=== PATIENT | female | born 1990 | race Two or more races ===

== ENCOUNTER 2024-08-14 11:07 | Outpatient (REF) | payer MEDICAID, SELFPAY ==
[2024-08-14 13:44] LABS: MANUAL DIFF FLAG NO
[2024-08-14 13:51] LABS: Basophils Percent Auto 0.3 % (0-2); Eosinophils Absolute Auto 0.2 X10*3/uL (0.0-0.4); Eosinophils Percent Auto 2.4 % (0-4); Hematocrit 32.3 % (37.0-47.0); Hemoglobin 9.6 g/dl (12.0-16.0); Imm Gran Abs Auto 0.02 X10*3/uL (0.00-0.03); Imm Gran Pct Auto 0.2 % (0.0-0.4); Lymphocytes Absolute Auto 1.9 X10*3/uL (1.2-4.9); Lymphocytes Percent Auto 21.8 % (20-40); Mean Corpuscular HGB Conc 29.7 g/dl (31.0-35.0); Mean Corpuscular Hemoglobin 21.5 pg (27.0-33.0); Mean Corpuscular Volume 72.3 fL (80.0-98.0); Mean Platelet Volume 10.9 fL (9.4-12.3); Monocytes Absolute Auto 0.5 X10*3/uL (0.1-1.2); Monocytes Percent Auto 5.7 % (2-11); Neutrophils Absolute Auto 6.1 x10*3/uL (2.0-8.3); Neutrophils Percent Auto 69.6 % (45-73); Platelet Count 382 X10*3/uL (160-400); Red Blood Count 4.47 X10*6/uL (4.20-5.50); Red Cell Distribution Width 21.6 % (11.0-16.0); White Blood Count 8.8 X10*3/uL (4.8-10.8)
[2024-08-14 14:01] LABS: Estimated Average Glucose 111 mg/dL; Hemoglobin A1c % 5.5 % (<6.0)
[2024-08-14 14:12] LABS: Alanine Aminotransferase 31 U/L (0-31); Albumin Level 4.4 g/dL (3.5-5.0); Alkaline Phosphatase 76 U/L (39-117); Anion Gap 11 (12-20); Aspartate Amino Transferase 29 U/L (5-31); Bilirubin Direct 0.2 mg/dL (0.0-0.5); Bilirubin Total 0.3 mg/dL (0.0-1.0); Blood Urea Nitrogen 10 mg/dL (9-16); Calcium 9.3 mg/dL (8.4-10.2); Carbon Dioxide 22 mmol/L (22-29); Chloride 108 mmol/L (96-108); Cholesterol 157 mg/dL (<200); Estimated Glomerular Filt Rate > 60; Glucose Random 83 mg/dL (60-115); HDL Cholesterol 50 mg/dL (>40); Iron 30 mcg/dL (30-160); LDL Cholesterol Calculated 73 mg/dL (<100); Percent Iron Saturation 8 % (15-50); Potassium 4.2 mmol/L (3.3-5.1); Sodium 137 mmol/L (135-145); Total Iron Binding Capacity 372 mcg/dL (228-428); Total Protein 7.9 g/dL (6.5-8.0); Triglycerides 172 mg/dL (<150); Unsaturated Iron Binding 342 ug/dL
[2024-08-14 14:20] LABS: Ferritin 52 ng/mL (10-122); TSH reflex Free T4 1.65 uIU/mL (0.32-4.0); Vitamin D 25-OH Total 18.5 ng/mL (>30)
[2024-08-14 14:22] LABS: Syphilis Screen Nonreactive (Nonreactive)
[2024-08-14 14:23] LABS: HIV AB/AG Nonreactive (Nonreactive); HIV Num 1 0.06 S/CO (0.00-0.99); ~HepC Num1 0.14 S/CO (0.00-0.79); ~Hepatitis C Antibody Nonreactive (Nonreactive)
[2024-08-14 14:36] LABS: Folate 12.9 ng/mL (> or = 4.0); Vitamin B12 245 pg/mL (200-900)
[2024-08-14 14:44] LABS: CT PCR NOT DETECTED (Not Detect.); NG PCR NOT DETECTED (Not Detect.)
== END 2024-08-14 11:08 | disposition home or self-care (01) ==
LOC: HO.HHCL 11:07
PROVIDERS: Visit Provider Family Medicine
DX: D64.9 Anemia, unspecified (principal); E66.811 Obesity, class 1; E66.09 Other obesity due to excess calories; Z68.30 Body mass index [BMI] 30.0-30.9, adult; Z11.3 Encounter for screening for infections with a predominantly sexual mode of transmission; H53.8 Other visual disturbances; R42 Dizziness and giddiness; R53.83 Other fatigue
CPT/HCPCS: 80048; 80061; 80076; 82306; 82607; 82728; 82746; 83036; 83540; 84443; 85025; 86780; 86803; 87389; 87491; 87591

== ENCOUNTER 2024-10-26 10:18 | Outpatient (REF) | payer MEDICAID, SELFPAY ==
--- OUTSIDE RECORDS SUMMARY | 2024-10-26 11:03 | XMS_ITS | Clinical Summary ---
Author Organization [employer] Address [address] [facility] [address] [place] [address] Care Team Providers Care Plant Hr Manager Name Role Phone Henny Cooney MD Primary Care Provider [phone] Allergies No known active allergies Medications cholecalciferol (Vitamin D-3) 25 MCG (1000 UT) tabletIndications: Vitamin D Deficiency Take 1 tablet (25 mcg) by mouth Once per day. 90 tablet 3 5 026 Active ferrous sulfate 325 (65 Fe) MG EC tabletIndications: Anemia, unspecified type TAKE 1 TABLET BY MOUTH TWICE DAILY WITH FOOD DO NOT BREAK, CRUSH, DISSOLVE OR CHEW 180 tablet 5 Active Ketotifen Fumarate 0.035 % solutionIndication s:Other chronic allergic conjunctivitis of both eyes Administer 1 drop into affected eye(s) 2 times daily. 10 mL 3 5 Active selenium sulfide (Selsun) 2.5 % shampooIndications :Dandruff Lather on scalp in shower twice a week, leave 3 min and rinse 118 mL 2 5 Active Active Problems Problem Noted Date Diagnosed Date Class 1 obesity due to exces s calories with body mass index (BMI) of 30.0 to 30.9 in adult 08/14/2024 Overview (08/14/2024): Discussed weight, diet, exercise with patient in relation to health conditions. Used motivational interviewing to illicit change talk and established initial goals with patient. Assessment & Plan (08/14/2024 10:35 AM EDT): Discussed weight, diet, exercise with patient in relation to health conditions. Used motivational interviewing to illicit change talk and established initial goals with patient. Anemia 08/14/2024 Overview (10/26/2024): Hx of anemia. Reporting symptoms of fatigue, dizziness and blurry vision for months, recently worsening. Lab Results Component Value Date FERRITIN 52 08/14/2024 HGB 9.6 (L) 08/14/2024 -repeating iron labs and vitamin B12 today 08/14/24. -start iron 08/14/24 -recheck Assessment & Plan (10/26/2024 9:41 AM EDT): Hx of anemia. Reporting symptoms of fatigue, dizziness and blurry vision for months, recently worsening. Lab Results Component Value Date FERRITIN 52 08/14/2024 HGB 9.6 (L) 08/14/2024 -repeating iron labs and vitamin B12 today 08/14/24. -start iron 08/14/24 -recheck Assessment & Plan (08/14/2024 11:08 AM EDT): Hx of anemia. Reporting symptoms of fatigue, dizziness and blurry vision for months, recently worsening. -repeating iron labs and vitamin B12 today 08/14/24. Other specified health status 08/14/2024 Overview (10/26/2024): -next comprehensive annual evaluation due after 10/26/24 -eye care facilitated by [facility] -dental home is -[facility] care proxy filed 10/26/24 Assessment & Plan (10/26/2024 9:40 AM EDT): -next comprehensive annual evaluation due after 10/26/24 -eye care facilitated by [facility] -[place] -[facility] care proxy filed 10/26/24 Vitamin D deficiency 08/14/2024 Overview (10/26/2024): Lab Results Component Value Date [id number] 18.5 (L) 08/14/2024 -start vit D 08/14/24 -recheck Assessment & Plan (10/26/2024 9:41 AM EDT): Lab Results Component Value Date [id number] 18.5 (L) 08/14/2024 -start vit D 08/14/24 -recheck Resolved Problems Problem Noted Date Diagnosed Date Resolved Date Dietary counseling 08/14/2024 Assessment & Plan (08/14/2024 10:34 AM EDT): Dietary Recommendations: Fruits, vegetables, whole grains, protein foods, and fat-free or low-fat dairy products are healthy choices. Eat different types of protein foods in your diet. This can include seafood, lean meats, poultry, beans, peas, lentils, nuts, seeds, soy products, and eggs. Limit foods and beverages higher in added sugars, saturated fat, and sodium. Exercise counseling 08/14/2024 10/27/19 Assessment & Plan (08/14/2024 10:35 AM EDT): Exercise Recommendations: At least 150 minutes of moderate-intensity physical activity per week, or an equivalent combination of moderate- and vigorous-intensity activity. Dizziness 08/14/2024 10/26/2024 Overview (10/26/2024): Ongoing for months, worsening the last couple months. COVID and Flu negative. -ordered TSH 08/14/24, normal. Likely due to anemia. Started on iron supplements and reordered labs. Assessment & Plan (08/14/2024 10:52 AM EDT): Ongoing for months, worsening the last couple months. COVID and Flu negative. -ordered TSH 08/14/24 Other fatigue 08/14/2024 10/26/2024 Overview (10/26/2024): Ongoing for months, worsening the last couple months. COVID and Flu negative. -ordered A1C, HFP, FLP, BMP and Vit D 08/14/24. Labs unremarkable, except anemia and vit D deficiency which could be causing her symptoms. Started on supplementation and will recheck labs. Assessment & Plan (08/14/2024 11:14 AM EDT): Ongoing for months, worsening the last couple months. COVID and Flu negative. -ordered A1C, HFP, FLP, BMP and Vit D 08/14/24 Blurry vision 08/14/2024 09/18/2024 Overview (08/14/2024): Ongoing for months, worsening the last couple months. COVID and Flu negative. -Ordered BMP and TSH 08/14/24 Assessment & Plan (08/14/2024 11:14 AM EDT): Ongoing for months, worsening the last couple months. COVID and Flu negative. -Ordered BMP and TSH 08/14/24 Encounters Date Type Department Care Team Description 10/26/2024 9:00 AM EDT Procedure Visit [facility] [address] [place] [address] Henny Cooney MD Class 1 obesity due to excess calories with body mass index (BMI) of 30.0 to 30.9 in adult, unspecified whether serious comorbidity present (Primary Dx); Anemia, unspecified type; Other fatigue; Dizziness; Vitamin D deficiency; Dietary counseling; Exercise counseling; Other specified health status; Cervical cancer screening; Routine screening for STI (sexually transmitted infection); Dandruff; Encounter for immunization 10/26/2024 Travel 10/25/2024 Telephone [facility] [address] [place] [address] Henny Cooney MD chart prep 09/18/2024 2:30 PM EDT Office Visit [facility] [address] [place] [address] Cindy Castañeda, OD Regular astigmatism, bilateral (Primary Dx); Other chronic allergic conjunctivitis of both eyes; Spasm of accommodation of both eyes 09/18/2024 Travel 09/13/2024 Telephone [facility] [address] [place] [address] Henny Cooney MD chartprep 09/07/2024 Refill [facility] [address] [place] [address] Henny Cooney MD Anemia, unspecified type 08/22/2024 Orders Only [facility] [address] [place] [phone] Henny Cooney MD Blurry vision (Primary Dx) 08/15/2024 Telephone [facility] [address] [place] [phone] Henny Cooney MD Results 08/14/2024 10:00 AM EDT Office Visit [facility] [address] [address] Henny Cooney MD Dizziness (Primary Dx); Other fatigue; Blurry vision; Anemia, unspecified type; Class 1 obesity due to excess calories with body mass index (BMI) of 30.0 to 30.9 in adult, unspecified whether serious comorbidity present; Dietary counseling; Exercise counseling; Routine screening for STI (sexually transmitted infection) 08/14/2024 Orders Only [facility] [address] [address] Henny Cooney MD Vitamin D deficiency (Primary Dx); Anemia, unspecified type 08/14/2024 Telephone [facility] [address] [place] [phone] Michell Mcdowell, MEÑO nurse triage 08/14/2024 [facility] [address] [address] Quique Hilario MD New patient appt. from Last 3 Months Immunizations Immunization Administration Dates Next Due Hep B, adult 10/26/2024 Tdap 10/26/2024 Family History Medical History Relation Name Comments Diabetes Other uncle Relation Name Status Comments Other uncle Social History Tobacco Use Types Packs/Day Years Used Date Smoking Tobacco: Never Smokeless Tobacco: Never Tobacco Cessation:Counseling Given: No Alcohol Use Standard Drinks/Week Comments Never 0 (1 standard drink = 0.6 oz pur e alcohol) Depression Answer Date Recorded Patient Health Questionnaire-9 Score 0 10/26/2024 Patient Health Questionnaire-9 Score 0 10/26/2024 Last PHQ-9: Questionnaire Data Not on file 0 10/26/2024 Housing Stability Answer Date Recorded What is your housing situation today? I have brittny ramirez 10/26/[address] you li ve. Do you have problems with any of the following? None of the above 10/26/2024 Food Insecurity Answer Date Recorded Within the past 12 months, y ou worried that your food would run out before you got money to buy more: Never True 10/26/2024 Within the past 12 months,th e food you bought just didn't last and you didn't have enough money to get more: Never True 10/2024 Transportation Answer Date Recorded In the past 12 months, has l ack of transportation kept you from medical appts, meetings, work or from getting things needed for daily living? No 10/26/2024 Utilities Answer Date Recorded In the past 12 months, has t he electric, gas, oil or water company threatened to shut off services in your home? No 10/26/2024 Depression Answer Date Recorded Patient Health Questionnaire-2 Score 0 10/26/2024 Internet Access Answer Date Recorded Internet Access Q1 No 10/26/2024 Internet Access Q2 I do not want or need it 10/2024 Comments Unknown Intention Date Recorded No desire to become (finding) 0 08/14/2024 Sex and Gender Information Value Date Recorded Sex Assigned at Female 08/14/2024 9:39 AM EDT Legal Sex Female 1:21 PM EST Gender Identity Female 08/14/2024 9:39 AM EDT Sexual Orientation Straight 08/14/2024 9: 39 AM EDT Last Filed Vital Signs Vital Sign Reading Time Taken Comments Blood Pressure 96/62 10/26/2024 9:11 AM EDT Pulse 83 10/26/2024 9:11 AM EDT Temperature 37.2 ??C (98.9 ??F) 10/26/2024 9:11 AM ED T Respiratory Rate 20 10/26/2024 9:11 AM EDT Oxygen Saturation 99% 10/26/2024 9:11 AM EDT Inhaled Oxygen Concentration - - Weight 68.6 kg (151 lb 3.2 oz) 10/26/2024 9:11 A M EDT Height 146.7 cm (4' 9.75 ) 10/26/2024 9:11 AM ED T Body Mass Index 31.88 10/26/2024 9:11 AM EDT Plan of Treatment Health Maintenance Due Date Last Done Comments Pap Smear 12/30/2012 Cervical Cancer Screening 12/30/2021 HPV/Cotest 12/30/2021 Hepatitis B Vaccines (2 of 3 - 19+ 3-dose series) 11/23/2024 10/26/2024 COVID-19 Vaccine (1 - 2023-2 5 season) 2024 Postponed from 01/21 (Supply/Drug Shortage) Influenza Vaccine (Season Ended) 2025 Family Planning (PISQ) 08/14/2025 08/14/2024 Alcohol/Substance Use Screening 10/26/2025 10/26/2024 Depression Screening 10/26/2025 10/26/2024, 10/26/2024 Disability Screening 10/26/2025 10/26/2024 SDOH Screening 10/26/2025 10/26/2024 Tobacco Screening 10/26/2025 10/26/2024 Lipid Panel 08/14/2029 08/14/2024 DTaP/Tdap/Td Vaccines (2 - T d or Tdap) 10/26/2034 10/26/2024 Zoster Vaccines (1 of 2) 12/30/2041 RSV Patients and Patients Aged 60 years or older (1 - 1-dose 75+ series) 12/30/2066 HIV Screening Completed 08/14/2024 Hepatitis C Screening Completed 08/14/2024 HIB Vaccines Aged Out No longer eligi ble based on patient's age to complete this topic HPV Vaccines Aged Out No longer eligi ble based on patient's age to complete this topic Hepatitis A Vaccines Aged Out No long er eligible based on patient's age to complete this topic IPV Vaccines Aged Out No longer eligi ble based on patient's age to complete this topic Meningococcal B Vaccine Aged Out No l onger eligible based on patient's age to complete this topic Meningococcal Vaccine Aged Out No antoine angel eligible based on patient's age to complete this topic Pneumococcal Vaccine: Pediatrics (0 to 5 Years) and At-Risk Patients (6 to 49) Years) Aged Out No longer eligible b ased on patient's age to complete this topic RSV under 20 months Aged Out No longe r eligible based on patient's age to complete this topic Rotavirus Vaccines Aged Out No longer eligible based on patient's age to complete this topic Procedures Procedure Name Priority Date/Time Associated Diagnosis Comments VITAMIN B12/FOLATE, SERUM PANEL Routine 08/14/2024 11:15 AM EDT Anemia, unspecified type IRON AND TOTAL IRON BINDING CAPACITY Routine 08/14/2024 11:15 AM EDT Anemia, unspecified type TSH W/REFLEX TO FT4 Routine 08/14/2024 1 1:15 AM EDT Dizziness Anemia, unspecified type Other fatigue Blurry vision FERRITIN Routine 08/14/2024 11:15 AM EDT Anemia, unspecified type CBC WITH AUTO DIFFERENTIAL Routine 08/14/2024 11:15 AM EDT Anemia, unspecified type SYPHILIS SCREEN Routine 08/14/2024 11:15 AM EDT Routine screening for STI (sexually transmitted infection) HIV 1/2 ANTIGEN/ANTIBODY, FOURTH GENERATION W/RFL Routine 08/14/2024 11:15 AM EDT Routine screening for STI (sexually transmitted infection) HEPATITIS C AB W/REFL TO HCV RNA, QN, PCR Routine 08/14/2024 11:15 AM EDT Routine screening for STI (sexually transmitted infection) VITAMIN D,25-OH,TOTAL,IA Routine 08/14/2024 11:15 AM EDT Other fatigue BASIC METABOLIC PANEL Routine 08/14/2024 11:15 AM EDT Other fatigue Blurry vision LIPID PANEL, STANDARD Routine 08/14/2024 11:15 AM EDT Class 1 obesity due to excess calories with body mass index (BMI) of 30.0 to 30.9 in adult, unspecified whether serious comorbidity present Other fatigue HEPATIC FUNCTION PANEL Routine 08/14/2024 11:15 AM EDT Other fatigue HEMOGLOBIN A1C Routine 08/14/2024 11:15 AM EDT Class 1 obesity due to excess calories with body mass index (BMI) of 30.0 to 30.9 in adult, unspecified whether serious comorbidity present Other fatigue CHLAMYDIA/N. GONORRHOEAE RNA, TMA, UROGENITAL Routine 08/14/2024 11:15 AM EDT Routine screening for STI (sexually transmitted infection) POCT INFLUENZA B (ID NOW RAPID MOLECULAR) Routine 08/14/2024 10:15 AM EDT Dizziness POCT RAPID COVID ANTIGEN Routine 08/14/2024 10:14 AM EDT Dizziness POCT INFLUENZA A (ID NOW RAPID MOLECULAR) Routine 08/14/2024 10:14 AM EDT Dizziness from Last 3 Months Results * Syphilis Screen (08/14/2024 11:15 AM EDT) Pathologist [facility] Syphilis Screen Nonreactive Nonreactive [facility] Blood Venous blood specimen / Unknown 08/14/2024 11:15 AM EDT 08/14/2024 1:38 PM EDT us Henny Cooney MD LAB BLOOD ORDERABLES Final Result [facility] [address] [place] [phone] * (ABNORMAL) Vitamin D, 25-Hydroxy, Total, Immunoassay (08/14/2024 11:15 AM EDT) Vitamin D 25-OH Total 18.5(L) >30 ng/mL [facility] Comment: Health Based Reference Values*< 20 ??ng/mL ??[id number] ng/mL ??Insufficient> 30 ??ng/mL ??Sufficient*Carmelo LAUGHLIN. N Engl J Med. 2007;357:266-280There is no well-established upper level of normal vitamin Dlevels. Some laboratories use 50 ng/mL as an upper limit ofnormal. However, toxicity is patient-dependent and may occurat any level. Careful correlation with the patient'spresentation is necessary and, if there is concern forvitamin D toxicity, treatment should be consideredirrespective of the serum level.Care must be taken in interpreting Vitamin D results fromdifferent laboratories and methodologies. ??Published datademonstrated that results from patients undergoinghemodialysis may show a negative bias when tested withvarious automated 25-OH vitamin D assays when compared toLC- MS/MS.When testing samples from patients whose predominant form ofVitamin D is Vitamin D2, such as patients receiving VitaminD2 supplementation, results that are subtherapeutic shouldbe confirmed with another method such as LC-MS/MS. Blood 08/14/2024 11:1 5 AM EDT 08/14/2024 1:38 PM EDT Henny Cooney MD LAB BLOOD ORDERABLES Final Result Performing Organization Address [facility] Co de Phone Number [facility] [address] [place] [phone] * Vitamin B12 (Cobalamin) and Folate Panel, Serum (08/14/2024 11:15 AM EDT) Vitamin B12 245 200 - 900 pg/mL [facility] Comment:NORMAL 200-900 PG/ML INDETERMINATE 160-199 PG/ML DEFICIENT < 160 PG/ML Folate 12.9 > or = 4.0 ng/mL [facility] Comment:Reference Values:> o r = 4.0 ng/mL< 4.0 ng/mL suggests folate deficiency Methotrexate, aminopterin and folinic acid(leucovorin) are chemotherapeutic agents whose molecularstructures are similar to folate; therefore, the Architectfolate assay cannot be used for patients using these drugs. Blood Venous blood specimen / Unknown 08/14/2024 11:15 AM EDT 08/14/2024 1:38 PM EDT Henny Cooney MD LAB BLOOD ORDERABLES Final Result Performing Organization Address [facility]/ZIP Co de Phone Number [facility] [address] [place] [phone] * TSH with Reflex to Free T4 (08/14/2024 11:15 AM EDT) TSH reflex Free T4 1.65 0.32 - 4.0 uIU/mL [facility] Blood Venous blood specimen / Unknown 08/14/2024 11:15 AM EDT 08/14/2024 1:38 PM EDT Henny Cooney MD LAB BLOOD ORDERABLES Final Result [facility] [address] [place] [phone] * (ABNORMAL) CBC auto differential (08/14/2024 11:15 AM EDT) White Blood Count 8.8 4.8 - 10.8 X10*3/uL [facility] Red Blood Count 4.47 4.20 - 5.50 X10*6/uL [facility] Hemoglobin 9.6(L) 12.0 - 16.0 g/dl [facility] Hematocrit 32.3(L) 37.0 - 47.0 % [facility] Mean Corpuscular Volume 72.3(L) 80.0 - 98.0 fL [facility] Mean Corpuscular Hemoglobin 21.5(L) 27.0 - 33.0 pg [facility] Mean Corpuscular HGB Conc 29.7(L) 31.0 - 35.0 g/dl [facility] Red Cell Distribution Width 21.6(H) 11.0 - 16.0 % [facility] Platelet Count 382 160 - 400 X10*3/uL [facility] Mean Platelet Volume 10.9 9.4 - 12.3 fL [facility] Neutrophils Percent Auto 69.6 45 - 73 % [facility] Imm Gran Pct Auto 0.2 0.0 - 0.4 % [facility] Lymphocytes Percent Auto 21.8 20 - 40 % [facility] Monocytes Percent Auto 5.7 2 - 11 % [facility] Eosinophils Percent Auto 2.4 0 - 4 % [facility] Basophils Percent Auto 0.3 0 - 2 % [facility] NRBC Pct Auto 0.0 0.0 - 0.2 /100WBC [facility] Neutrophils Absolute Auto 6.1 2.0 - 8.3 x10*3/uL [facility] Imm Gran Abs Auto 0.02 0.00 - 0.03 X10*3/uL [facility] Lymphocytes Absolute Auto 1.9 1.2 - 4.9 X10*3/uL [facility] Monocytes Absolute Auto 0.5 0.1 - 1.2 X10*3/uL [facility] Eosinophils Absolute Auto 0.2 0.0 - 0.4 X10*3/uL [facility] Basophils Absolute Auto 0.0 0.0 - 0.2 X10*3/uL [facility] NRBC Abs Auto 0.000 0.0 - 0.012 X10*3/uL [facility] Blood Venous blood specimen / Unknown 08/14/2024 11:15 AM EDT 08/14/2024 1:38 PM EDT Henny Cooney MD LAB BLOOD ORDERABLES Final Result Performing Organization Address [facility] Co de Phone Number [facility] [address] [place] [phone] * Hepatitis C Antibody with Reflex to HCV, RNA, Quantitative, Real-Time PCR (08/14/2024 11:15 AM EDT) Hepatitis C Antibody Nonreactive Nonreactive [facility] Comment:Antibodies to HCV no t detected; does not exclude early acuteHCV infection. Blood Venous blood specimen / Unknown 08/14/2024 11:15 AM EDT 08/14/2024 1:38 PM EDT Henny Cooney MD LAB BLOOD ORDERABLES Final Result Performing Organization Address City/[facility]/ZIP Co de Phone Number [facility] [address] [place] [address] [place] [phone] * (ABNORMAL) Iron And Total Iron Binding Capacity (08/14/2024 11:15 AM EDT) Pathologist [facility] Iron 30 30 - 160 mcg/dL [facility] Total Iron Binding Capacity 372 228 - 428 mcg/dL [facility] Percent Iron Saturation 8(L) 15 - 50 % [facility] Unsaturated Iron Binding 342 ug/dL [facility] Blood Venous blood specimen / Unknown 08/14/2024 11:15 AM EDT 08/14/2024 1:38 PM EDT Henny Cooney MD LAB BLOOD ORDERABLES Final Result [facility] [address] [place] [phone] * Chlamydia/N. Gonorrhoeae RNA, TMA, Urine (08/14/2024 11:15 AM EDT) [facility] CT PCR NOT DETECTED Not Detect. [facility] Comment:A not detected test result does not exclude the possibilityof infection because test results can be affected byimproper specimen collection, concurrent antibiotic therapy,or the number of organisms in the specimen which may bebelow the sensitivity of the test. As with many diagnostictests, results from the Xpert CT/NG assay should beinterpreted in conjunction with other laboratory andclinical data available to the clinician.Xpert CT/NG performance has not been evaluated in patientsless than 14 years of age. The assay should not be used forthe evaluationof suspected sexual abuse or for other medico-legalindications. Additional testing is recommended in anycircumstance when false positive or false negative resultscould lead to adverse medical, social or psychologicalconsequences. NG PCR NOT DETECTED Not Detect. [facility] Comment:A not detected test result does not exclude the possibilityof infection because test results can be affected byimproper specimen collection, concurrent antibiotic therapy,or the number of organisms in the specimen which may bebelow the sensitivity of the test. As with many diagnostictests, results from the Xpert CT/NG assay should beinterpreted in conjunction with other laboratory andclinical data available to the clinician.Xpert CT/NG performance has not been evaluated in patientsless than 14 years of age. The assay should not be used forthe evaluationof suspected sexual abuse or for other medico-legalindications. Additional testing is recommended in anycircumstance when false positive or false negative resultscould lead to adverse medical, social or psychologicalconsequences. Urine (Urine, Random) 08/14/2024 11:15 AM EDT 08/14/2024 1:05 PM EDT Narrative [facility] - 08/14/2024 2:44 PM EDT Urine Henny Cooney MD LAB MICROBIOLOGY - GENERAL ORDERABLES Final Result [facility] [address] [place] [phone] * HIV-1/2 Antigen and Antibodies, Fourth Generation, with Reflexes (08/14/2024 11:15 AM EDT) HIV AB/AG Nonreactive Nonreactive [facility] Comment:HIV-1 p24 Ag and/or HIV-1/HIV-2 Ab not detected.A test result that is nonreactive does not exclude thepossibility of exposure to or infection with HIV-1 and/orHIV-2. Nonreactive results in this assay for individualswith prior exposure to HIV-1 and/or HIV-2 may be due toantigen and antibody levels that are below the limit ofdetection of this assay.The [employer] HIV Ag/Ab Combo assay result andsupplemental assay results should be interpreted inconjunction with the patient's clinical presentation,history and other laboratory results. If the results areinconsistent with clinical evidence, additional testing issuggested to confirm the result. Blood Venous blood specimen / Unknown 08/14/2024 11:15 AM EDT 08/14/2024 1:38 PM EDT Henny Cooney MD LAB BLOOD ORDERABLES Final Result Performing Organization Address [facility] Co de Phone Number [facility] [address] [place] [phone] * Hemoglobin A1c (08/14/2024 11:15 AM EDT) Hemoglobin A1c 5.5 <6.0 % [facility] Comment:Hemoglobin A1C Refer ence Range Adults: 4.8 - 6.0 % Non diabetic: < 6.0 % Goal: < 7.0 %Additional Action Suggested: > 8.0 %Note: Hemoglobin A1c results are invalid for patients with abnormal amounts of HbF. Blood transfusions may impact the HbA1c concentration in the patient sample. Estimated Average Glucose 111 mg/dL [facility] Comment:eAG = Estimated ave rage glucose which is %A1C expressed asaverage glucose, using the formula of the [id number] Glucose study (ADAG), Diabetes Care, Vol.31,#8,2007 Blood Venous blood specimen / Unknown 08/14/2024 11:15 AM EDT 08/14/2024 1:38 PM EDT Henny Cooney MD LAB BLOOD ORDERABLES Final Result Performing Organization Address [facility] de Phone Number [facility] [address] [place] [address] [phone] * Ferritin (08/14/2024 11:15 AM EDT) Ferritin 52 10 - 122 ng/mL [facility] Blood Venous blood specimen / Unknown 08/14/2024 11:15 AM EDT 08/14/2024 1:38 PM EDT Henny Cooney MD LAB BLOOD ORDERABLES Final Result Performing Organization Address [facility] Co de Phone Number [facility] [address] [place] [address] [phone] * Hepatic Function Panel (08/14/2024 11:15 AM EDT) Bilirubin, Total 0.3 0.0 - 1.0 mg/dL [facility] Bilirubin, Direct 0.2 0.0 - 0.5 mg/dL [facility] Aspartate Amino Transferase 29 5 - 31 U/L [facility] Alanine Aminotransferase 31 0 - 31 U/L [facility] Total Protein 7.9 6.5 - 8.0 g/dL [facility] Albumin Level 4.4 3.5 - 5.0 g/dL [facility] Alkaline Phosphatase 76 39 - 117 U/L [facility] Blood Venous blood specimen / Unknown 08/14/2024 11:15 AM EDT 08/14/2024 1:38 PM EDT us Henny Cooney MD LAB BLOOD ORDERABLES Final Result [facility] [address] [place] [address] [phone] * (ABNORMAL) Lipid Panel, Standard (08/14/2024 11:15 AM EDT) Triglycerides 172(H) <150 mg/dL [facility] Comment:Desirable Triglyceri de: less than 150 mg/dLBorderline High Triglyceride 150-199 mg/dLHigh Triglyceride: 200-499 mg/dLVery High Triglyceride: greater than or equal to 5OO mg/dL Cholesterol 157 <200 mg/dL [facility] Comment:Desirable Cholestero l: less than 200 mg/dLBorderline High Cholesterol: 200-239 mg/dLHigh Cholesterol: greater than 239 mg/dL LDL Cholesterol Calculated 73 <100 mg/dL [facility] Comment:Desirable LDL: less than 100 mg/dLNear Optimal/Above Optimal LDL: 110- 129 mg/dLBorderline High LDL: 130-159 mg/dLHigh LDL: 160-189 mg/dLVery High LDL: greater than or equal to 190 mg/dL HDL Cholesterol 50 >40 mg/dL [facility] Comment:Desirable HDL: great er than 40 mg/dL Note: This HDL assay may give artificially low results in patients with liver disease. Blood Venous blood specimen / Unknown 08/14/2024 11:15 AM EDT 08/14/2024 1:38 PM EDT Henny Cooney MD LAB BLOOD ORDERABLES Final Result Performing Organization Address [facility]/ZIP Co de Phone Number [facility] [address] [place] [phone] * (ABNORMAL) Basic Metabolic Panel (08/14/2024 11:15 AM EDT) Pathologist [facility] Sodium 137 135 - 145 mmol/L [facility] Potassium 4.2 3.3 - 5.1 mmol/L [facility] Chloride 108 96 - 108 mmol/L [facility] Carbon Dioxide 22 22 - 29 mmol/L [facility] Anion Gap 11(L) 12 - 20 [facility] Urea Nitrogen (BUN) 10 9 - 16 mg/dL [facility] Creatinine, Serum 0.62 0.5 - 1.4 mg/dL [facility] Estimated Glomerular Filt Rate >60 [facility] Comment:Chronic Kidney Disea se: Estimated GFR < 60 mL/min/1.51q3Wutnmp Kidney Disease: Estimated GFR < 15 mL/min/1.73m2 Glucose 83 60 - 115 mg/dL [facility] Calcium 9.3 8.4 - 10.2 mg/dL [facility] Blood Venous blood specimen / Unknown 08/14/2024 11:15 AM EDT 08/14/2024 1:38 PM EDT Henny Cooney MD LAB BLOOD ORDERABLES Final Result Performing Organization Address [facility] Co de Phone Number [facility] [address] [place] [phone] * Influenza B (ID NOW Rapid Molecular) (08/14/2024 10:15 AM EDT) Influenza B Negative Negative, Indeterminate [facility] Swab 08/14/2024 10:1 5 AM EDT Henny Cooney MD POINT OF CARE TEST ENTER/E DIT ORDERABLES Final Result Performing Organization Address City/[facility]/ZIP Co de Phone Number [facility] [address] [place] [phone] * Influenza A (ID NOW Rapid Molecular) (08/14/2024 10:14 AM EDT) Influenza A Negative Negative, Indeterminate [facility] Swab 08/14/2024 10:1 4 AM EDT Henny Cooney MD POINT OF CARE TEST ENTER/E DIT ORDERABLES Final Result Performing Organization Address City/[facility]/ZIP Co de Phone Number [facility] [address] [place] [phone] * POCT Rapid COVID Ag (08/14/2024 10:14 AM EDT) Rapid COVID Ag Negative Swab 08/14/2024 10:1 4 AM EDT Henny Cooney MD POINT OF CARE TEST ENTER/E DIT ORDERABLES Final Result from Last 3 Months Insurance payworks HSN FULL Care Teams Plant [employer] Relationship Specialty Start Date End Date Henny Cooney MD [address] [place] [phone] PCP - General Family Medicine 08/14/24
[2024-10-26 11:17] LABS: MANUAL DIFF FLAG NO
[2024-10-26 11:30] LABS: Basophils Percent Auto 0.3 % (0-2); Eosinophils Absolute Auto 0.4 X10*3/uL (0.0-0.4); Eosinophils Percent Auto 4.9 % (0-4); Hematocrit 32.9 % (37.0-47.0); Hemoglobin 10.1 g/dl (12.0-16.0); Imm Gran Abs Auto 0.02 X10*3/uL (0.00-0.03); Imm Gran Pct Auto 0.3 % (0.0-0.4); Lymphocytes Percent Auto 26.6 % (20-40); Mean Corpuscular HGB Conc 30.7 g/dl (31.0-35.0); Mean Corpuscular Hemoglobin 23.6 pg (27.0-33.0); Mean Corpuscular Volume 76.9 fL (80.0-98.0); Mean Platelet Volume 10.4 fL (9.4-12.3); Monocytes Absolute Auto 0.5 X10*3/uL (0.1-1.2); Monocytes Percent Auto 7.1 % (2-11); Neutrophils Absolute Auto 4.6 x10*3/uL (2.0-8.3); Neutrophils Percent Auto 60.8 % (45-73); Platelet Count 327 X10*3/uL (160-400); Red Blood Count 4.28 X10*6/uL (4.20-5.50); Red Cell Distribution Width 19.5 % (11.0-16.0); White Blood Count 7.5 X10*3/uL (4.8-10.8)
[2024-10-26 14:15] LABS: Iron 25 mcg/dL (30-160); Percent Iron Saturation 7 % (15-50); Total Iron Binding Capacity 349 mcg/dL (228-428); Unsaturated Iron Binding 324 ug/dL
[2024-10-26 14:24] LABS: Ferritin 13 ng/mL (10-122); TSH reflex Free T4 1.53 uIU/mL (0.32-4.0); Vitamin D 25-OH Total 46.9 ng/mL (>30)
[2024-10-26 14:39] LABS: Folate 14.7 ng/mL (> or = 4.0); Vitamin B12 216 pg/mL (200-900)
== END 2024-10-26 10:19 | disposition home or self-care (01) ==
LOC: HO.HHCL 10:18
PROVIDERS: Visit Provider Family Medicine
DX: D64.9 Anemia, unspecified (principal); E55.9 Vitamin D deficiency, unspecified
CPT/HCPCS: 36415; 82306; 82607; 82728; 82746; 83540; 84443; 85025

== ENCOUNTER 2024-10-26 16:43 | Outpatient (REF) | payer MEDICAID, SELFPAY ==
[2024-10-30 22:29] LABS: C. trachomatis RNA TMA NOT DETECTED (NOT DETECTED); N. gonorrhoeae RNA TMA NOT DETECTED (NOT DETECTED); Trichomonas (NAAT) NOT DETECTED (NOT DETECTED)
[2024-10-31 13:44] LABS: HPV Genotype 16 Negative (Negative); HPV Genotype 18 Negative (Negative); HPV High Risk Negative (Negative)
== END 2024-10-26 16:44 | disposition home or self-care (01) ==
LOC: HO.HHCLNP 16:43
PROVIDERS: Visit Provider Family Medicine
DX: Z11.3 Encounter for screening for infections with a predominantly sexual mode of transmission (principal); Z12.4 Encounter for screening for malignant neoplasm of cervix
CPT/HCPCS: 36415; 82306; 82607; 82728; 82746; 83540; 84443; 85025; 87491; 87591; 87626; 87661; 88175